=== PATIENT | male | born 1995 | race Hispanic/Latino ===

== ENCOUNTER 2018-10-12 15:29 | Emergency (ER) | payer SELFPAY ==
[~2018-10-12] VITALS: Ht 165.1 cm; Wt 80.0 kg
[2018-10-12] MEDS ORDERED: HYDROCORTISONE0.5 % TOP (16:19)
[2018-10-12 16:25] VITALS: BP 110/68
== END 2018-10-12 16:30 | disposition home or self-care (01) | DRG 918 ==
LOC: ED 15:29
DX: T65.891A Toxic effect of other specified substances, accidental (unintentional), initial encounter (principal); L24.5 Irritant contact dermatitis due to other chemical products; F17.210 Nicotine dependence, cigarettes, uncomplicated